=== PATIENT | female | born 1930 | race Caucasian/White ===

== ENCOUNTER 2017-04-20 15:48 | Observation (INO) | payer OTHER ==
[~2017-04-20] VITALS: Ht 157.5 cm; Wt 81.3 kg
[~2017-04-20 15:48] MED LIST: ADVAIR 250/501 DISK IH; ALLOPURINOL100 MG PO; AMLODIPINE BESY10 MG PO; ASPIR-LOW81 MG PO; ASPIRIN E.C.81 M2 PO; ASPIRIN81 M1; Advair 250/50 Diskus IH; BYSTOLIC10 MG PO; CARAFATE1 GM PO; CARAFATE100 MG/ML PO; CILOSTAZOL50 MG; DIOVAN320 MG; DIOVAN320 MG PO; Ecotrin PO; FIBER TABS625 MG PO; HYDROCHLOROTHIAZIDE; HYDRODIURIL,O12.5 M2 PO; LASIX20 MG PO; LEVOTHYROXIN; LEVOTHYROXINE100 MCG PO; LEVOTHYROXINE88 MCG PO; LOPRESSOR25 MG PO; Levothroid,Synthroid PO; METOPROLOL TART25 MG; NEXIUM40 MG; NEXIUM40 MG PO; PRAVACHOL20 MG PO; PRAVASTATIN SOD20 MG; Pletal PO; SPIRIVA1 INHALATI IH; TERAZOSIN HCL5 MG PO; VIT D; Vitamin D PO; ZEMPLAR1 MCG PO; ZOFRAN4 MG PO; Zofran PO
[2017-04-20 16:47] LABS: HEMATOCRIT 30.9 % (36.0-46.0); HEMOGLOBIN 10.4 G/DL (11.9-15.5); MCH 28.7 PG (29.0-34.0); MCHC 33.7 G/DL (30.0-36.0); MCV 85.4 FL (83-99); PLATELET COUNT 135 K/uL (156-360); RBC DIS.WIDTH-CV 16.6 % (11.8-14.6); RBC DIS.WIDTH-SD 51.7 % (39-53); RED BLOOD COUNT 3.62 M/uL (3.80-5.20); WHITE BLOOD COUNT 6.1 K/uL (4.1-10.2)
[2017-04-20 16:55] LABS: CHLORIDE 104 mEq/L (99-109); POTASSIUM 3.9 mEq/L (3.7-5.4); SODIUM 142 mEq/L (136-147)
[2017-04-20 16:57] LABS: GLUCOSE 83 mg/dL (70-99)
[2017-04-20 17:00] LABS: GFR ESTIMATE (CALCULATED) 56 mL/min/
[2017-04-20 17:01] LABS: UREA NITROGEN (BUN) 15 mg/dL (9-23)
[2017-04-20 17:07] LABS: TROP-I INTERPRETATION NEGATIVE; TROPONIN-I < 0.01 ng/mL (0.0-0.30)
[2017-04-20 20:20] VITALS: BP 193/84
[2017-04-20 21:26] LABS: TROP-I INTERPRETATION NEGATIVE; TROPONIN-I 0.02 ng/mL (0.0-0.30)
[2017-04-21 00:25] VITALS: BP 159/70
[2017-04-21 01:03] LABS: TROP-I INTERPRETATION NEGATIVE; TROPONIN-I 0.01 ng/mL (0.0-0.30)
[2017-04-21 02:52] VITALS: BP 167/78
[2017-04-21 08:26] VITALS: BP 182/90
[2017-04-21] MEDS ORDERED: PLAVIX75 MG PO (09:32)
[2017-04-21] MEDS ORDERED: PROAIR HFA8.5 GM IH (09:33)
[2017-04-21] MEDS ORDERED: RANITIDINE HCL150 M1 PO (10:40)
[2017-04-21] MEDS ORDERED: VOLTAREN 1% GE100 GM TP (10:40)
[2017-04-21] MEDS ORDERED: PENTOXIFYLLINE400 MG PO (10:41)
[2017-04-21] MEDS ORDERED: BENZONATATE100 MG PO (10:41)
[2017-04-21 11:46] VITALS: BP 172/76
[2017-04-21 12:21] VITALS: BP 157/59
[2017-04-21] MEDS ORDERED: AMLODIPINE BESYL5 MG PO (15:04)
[2017-04-21] MEDS ORDERED: PREDNISONE10 MG PO (16:41)
== END 2017-04-21 16:46 | disposition home or self-care (01) ==
LOC: EME 15:48 → EDOF 18:34 → 5WEST 18:34 → ENRESERV 18:40 → 5WEST 19:56
PROVIDERS: Hospitalist
DX: R07.9 Chest pain, unspecified (principal); J44.1 Chronic obstructive pulmonary disease with (acute) exacerbation; Z99.81 Dependence on supplemental oxygen; I10 Essential (primary) hypertension; E78.5 Hyperlipidemia, unspecified; I65.23 Occlusion and stenosis of bilateral carotid arteries; I25.2 Old myocardial infarction; Z85.3 Personal history of malignant neoplasm of breast; Z85.118 Personal history of other malignant neoplasm of bronchus and lung; Z86.73 Personal history of transient ischemic attack (TIA), and cerebral infarction without residual deficits; Z87.891 Personal history of nicotine dependence; I44.7 Left bundle-branch block, unspecified; Z79.82 Long term (current) use of aspirin; H53.9 Unspecified visual disturbance; K44.9 Diaphragmatic hernia without obstruction or gangrene; E03.9 Hypothyroidism, unspecified; Z79.01 Long term (current) use of anticoagulants; D64.9 Anemia, unspecified; K21.9 Gastro-esophageal reflux disease without esophagitis; M19.90 Unspecified osteoarthritis, unspecified site; M10.9 Gout, unspecified
CPT/HCPCS: 71046; 80048; 84484; 85027; 93005; 93880; 94640; 94640 76; 94799; 99281; 99285; G0378; J2920; J2930

== ENCOUNTER 2017-07-25 09:20 | Day surgery (SDC) | payer OTHER ==
[~2017-07-25] VITALS: Ht 157.5 cm; Wt 81.2 kg
[~2017-07-25 09:20] MED LIST changes: +AMLODIPINE BESYL5 MG PO; +ASPIR 8181 M1 PO; +BENZONATATE100 MG PO; +PENTOXIFYLLINE400 MG PO; +PLAVIX75 MG PO; +PREDNISONE10 MG PO; +PROAIR HFA8.5 GM IH; +RANITIDINE HCL150 M1 PO; +VOLTAREN 1% GE100 GM TP
[2017-07-25 10:54] VITALS: BP 157/67
[2017-07-25 14:00] VITALS: BP 179/81
[2017-07-25 14:54] VITALS: BP 154/59
== END 2017-07-25 15:05 | disposition home or self-care (01) ==
LOC: SDC 09:20
DX: H33.8 Other retinal detachments (principal); H35.3210 Exudative age-related macular degeneration, right eye, stage unspecified; H35.61 Retinal hemorrhage, right eye; J44.9 Chronic obstructive pulmonary disease, unspecified; E03.9 Hypothyroidism, unspecified; I10 Essential (primary) hypertension; I25.10 Atherosclerotic heart disease of native coronary artery without angina pectoris; D83.8 Other common variable immunodeficiencies; Z79.82 Long term (current) use of aspirin; Z79.02 Long term (current) use of antithrombotics/antiplatelets; Z87.891 Personal history of nicotine dependence; Z85.850 Personal history of malignant neoplasm of thyroid; Z85.3 Personal history of malignant neoplasm of breast; Z85.118 Personal history of other malignant neoplasm of bronchus and lung; Z86.73 Personal history of transient ischemic attack (TIA), and cerebral infarction without residual deficits
CPT/HCPCS: J0690; J0713; J2250; J2997